=== PATIENT | female | born 1995 | race Caucasian/White ===

== ENCOUNTER 2017-01-26 09:40 | Emergency (ER) | payer MEDICAID ==
--- NOTE | 2017-01-26 10:02 | ED Physician Chart ---
ED Chief Complaint/HPI - Patient Information Date Seen:: 01/26/17 Time Seen:: 09:50 Chief Complaint:: abdominal pain History of Present Illness:: Patient developed left lower quadrant abdominal pain 9 out of 10 in severity yesterday. No chills, fever or back pain. Patient has dysuria. Her last menstrual period started yesterday and is normal. Allergies:: Allergies Allergy/AdvReac Type Severity Reaction Status Date / Time No Known Allergies Allergy Verified 01/26/17 09:49 Vitals:: Vital Signs - 8 hr 01/26/17 09:50 Temp 98.7 F HR 86 RR 15 BP 112/67 O2 Sat % 100 Historian:: Patient, Family Member Review:: Nurse's Note Reviewed ED Review of Systems - Review of Systems General/Constitutional: No fever, No chills Skin: No skin lesions Head: No headache Eyes: No loss of vision ENT: No earache, No nasal drainage, No sore throat, No tinnitus Neck: No neck pain Cardio Vascular: No chest pain Pulmonary: No SOB, No cough, No sputum GI: No nausea, No vomiting, No diarrhea, Pain G/U: Dysuria [employer]: No abnormal vaginal bleed Musculoskeletal: No bone or joint pain Endocrine: No polyuria Psychiatric: No prior psych history Hematopoietic: No bruising, No lymphadenopathy Allergic/Immuno: No urticaria, No angioedema Neurological: No syncope, No headache Family Medical History - Family Member Mother Ethnicity: Living Status: Still Living Hx Family Cancer: No Hx Family Coronary Artery Disease: No Hx Family Congestive Heart Failure: No Hx Family Hypertension: No Hx Family Stroke: No Hx Family Diabetes: No Hx Family Seizures: No Hx Family Dementia: No Hx Family AIDS: No Hx Family HIV: No Hx Family COPD: No Hx Family Hepatitis: No Hx Family Psychiatric Problems: No Hx Family Tuberculosis: No ED Physical Exam - Physical Examination General/Constitutional: Well-developed, well-nourished, Alert, No distress Head: Atraumatic Eyes: Lids, conjuctiva normal, PERRL Skin: Nl inspection, No rash ENMT: External ears, nose nl, TM canals nl, Nasal exam nl, Lips, teeth, gums nl , Oropharynx nl, Tonsils nl Neck: No nuchal rigidity Respiratory: Nl effort/Exclusion, Clear to Auscultation, No Wheeze/Rhonchi/Rales Cardio Vascular: RRR, No murmur, gallop, rubs, NL S1 S2 GI: No organomegaly, Nondistended, No mass/bruits Other GI comments:: Left lower quadrant and left groin tenderness : No CVA tenderness, NL external genitalia, No discharge, NL pelvic exam, No CMT, NL adnexa Other comments:: Uterus not enlarged to palpation; blood present is from her current menstrual period Extremities: Normal digits & nails Neuro/Psych: No focal deficits Misc: Normal back ED Labs/Radiology/EKG Results - Lab Results Results: Laboratory Results - last 24 hr 01/26/17 01/26/17 01/26/17 10:10 10:10 10:45 WBC 8.0 RBC 4.26 Hgb 11.6 L Hct 35.7 L MCV 83.8 MCH 27.2 MCHC Differential 32.5 RDW 12.8 Plt Count 258 MPV 7.9 Neutrophils % 64.2 Lymphocytes % 27.6 Monocytes % 5.9 Eosinophils % 2.0 Basophils % 0.3 Urine Source CLEAN C Urine Color RED Urine Clarity BLOODY H Urine pH 5.5 Ur Specific Kelly 1.025 Urine Protein 30 H Urine Glucose (UA) NEGATIVE Urine Ketones NEGATIVE Urine Blood LARGE H Urine Nitrate NEGATIVE Urine Bilirubin SMALL H Urine Urobilinogen 0.2 Ur Leukocyte Esterase TRACE H Urine RBC >100 H Urine WBC 2-5 Ur Epithelial Cells FEW Urine Bacteria FEW Urine Test NEGATIVE ED Assessment - Assessment General Assessment: At 1155 patient's pain was 8 on a scale 1-10. She had left lower quadrant tenderness. Pelvic ultrasound was normal but the left ovary was not visualized secondary to overlying gas; there is no hydronephrosis. A small ureteral calculus cannot be ruled out. Patient's pain appears to be of benign etiology and should subside without treatment. ED Septic Shock - . Is Septic Shock (SBP<90, OR Lactate>4 mmol\L) present?: No - <6hrs of presentation: Vital Signs: Vital Signs - 8 hr 01/26/17 09:50 Temp 98.7 F HR 86 RR 15 BP 112/67 O2 Sat % 100 ED Reassessment (Disposition) - Reassessment Reassessment Condition:: Improved - Diagnosis Diagnosis:: Ruptured ovarian cyst - Aftercare/Follow up Instructions Aftercare/Follow-Up Instructions:: Refer to Discharge Instructions Medication Prescribed:: Prescription for ibuprofen 400 mg #30 to take 1 3 times a day given. - Patient Disposition Discharge/Transfer:: Home Condition at Disposition:: Stable, Improved ED Discharge Plan - Patient Disposition Prescriptions: Ibuprofen 400 mg PO TID #30 tab Instructions: Ovarian Cyst
[2017-01-26 10:18] LABS: URINE MICROSCOPIC INDICATED? YES; URINE SOURCE CLEAN C
[2017-01-26 10:22] LABS: URINE BILIRUBIN SMALL (NEGATIVE); URINE BLOOD LARGE (NEGATIVE); URINE GLUCOSE (UA) NEGATIVE (NEGATIVE); URINE KETONE NEGATIVE (NEGATIVE); URINE LEUKOCYTE ESTERASE TRACE (NEGATIVE); URINE NITRATE NEGATIVE (NEGATIVE); URINE PH 5.5 (4.6 - 8.0); URINE PROTEIN 30 mg/dL (NEGATIVE); URINE UROBILINOGEN 0.2 E.U./dL (0.2 - 1.0)
[2017-01-26 10:34] LABS: URINE CLARITY BLOODY (CLEAR); URINE COLOR RED
[2017-01-26 10:37] LABS: URINE EPITHELIAL CELLS FEW /lpf (FEW); URINE RBC >100 /hpf (0-5)
[2017-01-26 10:38] LABS: URINE BACTERIA FEW /hpf (NONE SEEN)
[2017-01-26 10:51] LABS: % BASOPHILS 0.3 % (0.0-2.0); % LYMPHOCYTES 27.6 % (20.0-50.0); % MONOCYTES 5.9 % (2.0-10.0); % NEUTROPHILS 64.2 % (40.0-80.0); EOSINOPHILE ABSOLUTE 0.2 Th/cmm (0.1-0.4); HEMATOCRIT 35.7 % (41.0-60); HEMOGLOBIN 11.6 gm/dL (12-16); LYMPHOCYTE ABSOLUTE 2.2 Th/cmm (1.5-3.0); MEAN CELL VOLUME 83.8 fl (81-100); MEAN CORPUSCULAR HEMOGLOBIN 27.2 pg (27.0-31.0); MEAN CORPUSCULAR HGB CONC 32.5 pg (28.0-36.0); MEAN PLATELET VOLUME 7.9 fl; MONOCYTE ABSOLUTE 0.5 Th/cmm (0.3-1.0); NEUTROPHILE ABSOLUTE 5.1 Th/cmm (1.8-8.0); PLATELET COUNT 258 Th/cmm (150-400); RED BLOOD COUNT 4.26 Mil/cmm (3.80-5.10); RED CELL DISTRIBUTION WIDTH 12.8 % (11.5-20.0)
--- NOTE | 2017-01-26 12:28 | Diagnostic Imaging Report ---
Exam: Limited ultrasound examination of the left kidney HISTORY: Left lower quadrant pain I needs: Real-time ultrasound examination of left kidney was performed multiple planes. The study demonstrates no evidence of obstructive uropathy or nephrolithiasis. Right kidney measures 11.7 x 4.7 x 4.7 cm diameter. Normal vascular flow is noted. The visualized spleen is intact. impression: Normal limited examination left kidney, no evidence for obstructive uropathy or nephrolithiasis.
--- NOTE | 2017-01-26 12:29 | Diagnostic Imaging Report ---
Exam: Pelvic ultrasound. HISTORY: left lower quadrant pain. Findings: Real-time ultrasound examination of pelvis performed planes. The study demonstrates normal echogenicity uterus measuring 11.4 x 4.8 x 5.8 cm diameter. The endometrial thickness 4 mm Left ovary is not seen. Right ovary measures 2.5 x 1.6 x 2.5 m diameter. Small follicular cysts are noted largest measuring 5 mm diameter. No free fluid is noted. IMPRESSION: Normal examination of pelvis, nonvisualization left ovary.
== END 2017-01-26 12:30 | disposition home or self-care (01) ==
LOC: ER 09:40
DX: N83.202 Unspecified ovarian cyst, left side (principal)
CPT/HCPCS: 99285; 96372; 76705; 76856; 36415; 85025; 81001; 81025; J1885